=== PATIENT | female | born 1935 | race Caucasian/White ===

== ENCOUNTER 2016-03-06 08:53 | Inpatient (IN) | payer OTHER ==
[~2016-03-06] VITALS: Ht 162.6 cm; Wt 86.6 kg
[~2016-03-06 08:53] MED LIST: ADULT LOW DOSE81 M1 PO; ALLOPURINOL300 MG PO; GEMFIBROZIL600 MG PO; GLUCOPHAGE500 MG PO; MICARDIS HCT1 TABLET PO; SIMVASTATIN40 MG PO; VICODIN,LORT1 TABLET PO
[2016-03-06 09:55] LABS: EOSINOPHIL (%) 0.5 % (0-5); EOSINOPHIL COUNT 0.1 K/uL (0-0.3); HEMATOCRIT 30.4 % (36.0-46.0); IMMATURE GRANULOCYTE (%) 0.9 % (0.0-0.7); MCH 30.8 PG (29.0-34.0); MCHC 32.9 G/DL (30.0-36.0); MCV 93.5 FL (83-99); MEAN PLAT.VOLUME 10.1 uM^3 (9.5-12.4); MONOCYTE (%) 4.2 % (3-12); MONOCYTE COUNT 0.5 K/uL (0-0.8); NEUTROPHIL (%) 85.4 % (45-76); NEUTROPHIL COUNT 9.4 K/uL (1.8-6.4); PLATELET COUNT 365 K/uL (156-360); RBC DIS.WIDTH-CV 14.3 % (11.8-14.6); RBC DIS.WIDTH-SD 46.2 % (39-53); RED BLOOD COUNT 3.25 M/uL (3.80-5.20)
[2016-03-06 10:06] LABS: CHLORIDE 108 mEq/L (99-109); POTASSIUM 4.6 mEq/L (3.7-5.4); SODIUM 139 mEq/L (136-147)
[2016-03-06 10:08] LABS: GLUCOSE 109 mg/dL (70-99)
[2016-03-06 10:09] LABS: ANION GAP 12 MEQ/L (2-14)
[2016-03-06 10:10] LABS: TOTAL BILIRUBIN 0.3 mg/dL (0.0-1.0)
[2016-03-06 10:11] LABS: ALKALINE PHOSPHATASE 85 IU/L (3-129)
[2016-03-06 10:12] LABS: GFR ESTIMATE (CALCULATED) 6 mL/min/
[2016-03-06 10:17] LABS: TROP-I INTERPRETATION POSITIVE
[2016-03-06 10:23] LABS: UREA NITROGEN (BUN) 104 mg/dL (9-23)
[2016-03-06 10:24] LABS: TROPONIN-I 0.68 ng/mL (0.0-0.30)
[2016-03-06 10:52] LABS: ADD MIUA? YES; BILIRUBIN SMALL; BLOOD SMALL; COLOR YELLOW ((YELLOW)); GLUCOSE (STRIP) NEGATIVE; KETONES NEGATIVE; LEUKOCYTES NEGATIVE; NITRITE NEGATIVE; PROTEIN (STRIP) >=300; SPECIFIC GRAVITY 1.019 (1.000-1.030); UROBILINOGEN 0.2 MG/DL (0.2-1.0)
[2016-03-06 11:16] LABS: BACTERIA NONE SEEN; CASTS NONE SEEN /LPF; CRYSTALS NONE SEEN; EPITHELIAL CELLS RARE; MUCUS NONE SEEN; PATHOLOGICAL CAST NONE SEEN; RED BLOOD CELLS 0-5 /HPF (0-5); SMALL ROUND CELL NONE SEEN; UCUL ADDED? NO; WHITE BLOOD CELLS 0-5 /HPF (0-5); YEAST-LIKE CELL NONE SEEN
[2016-03-06 15:45] VITALS: BP 144/82
[2016-03-06 20:13] VITALS: BP 129/69
[2016-03-06 20:49] LABS: POINT-OF-CARE METER ID UU13113725
[2016-03-06 23:29] VITALS: BP 137/64
[2016-03-07 03:27] VITALS: BP 115/58
[2016-03-07 03:28] VITALS: BP 115/58
[2016-03-07 06:20] LABS: HEMATOCRIT 27.8 % (36.0-46.0); MCHC 32.7 G/DL (30.0-36.0); MCV 94.6 FL (83-99); MEAN PLAT.VOLUME 10.5 uM^3 (9.5-12.4); PLATELET COUNT 332 K/uL (156-360); RBC DIS.WIDTH-CV 14.6 % (11.8-14.6); RBC DIS.WIDTH-SD 49.9 % (39-53); RED BLOOD COUNT 2.94 M/uL (3.80-5.20); WHITE BLOOD COUNT 9.3 K/uL (4.1-10.2)
[2016-03-07 06:32] LABS: POINT-OF-CARE METER ID UU13113725
[2016-03-07 06:45] LABS: ANION GAP 11 MEQ/L (2-14); CHLORIDE 113 MEQ/L (99-109); GFR ESTIMATE (CALCULATED) 8 mL/min/; GLUCOSE 96 mg/dL (70-99); POTASSIUM 4.5 MEQ/L (3.7-5.4); SAMPLE HEMOLYSIS CHECK 0; SAMPLE ICTERIC CHECK 0; SAMPLE LIPEMIA CHECK 0; SODIUM 143 MEQ/L (136-147); UREA NITROGEN (BUN) 91 mg/dL (9-23)
[2016-03-07 08:27] VITALS: BP 110/60
[2016-03-07 11:19] LABS: POINT-OF-CARE METER ID UU13113725
[2016-03-07 15:42] LABS: POINT-OF-CARE METER ID UU13113725
[2016-03-07 16:09] LABS: POINT-OF-CARE METER ID UU13113725
[2016-03-07 19:32] VITALS: BP 127/70
[2016-03-07 20:43] LABS: POINT-OF-CARE METER ID UU13113725
[2016-03-08] VITALS (7 sets, daily range): BP systolic 110–156; BP diastolic 68–79
[2016-03-08 06:04] LABS: POINT-OF-CARE METER ID UU13113725
[2016-03-08 06:32] LABS: ABSOLUTE RETICULOCYTE CT. 0.03 M/uL (0.02-0.08); HEMATOCRIT 26.7 % (36.0-46.0); IMM.RETIC FRACTION 5.6 % (3-19); MCH 30.5 PG (29.0-34.0); MCHC 31.8 G/DL (30.0-36.0); MCV 95.7 FL (83-99); MEAN PLAT.VOLUME 10.5 uM^3 (9.5-12.4); PLATELET COUNT 258 K/uL (156-360); RBC DIS.WIDTH-CV 14.5 % (11.8-14.6); RBC DIS.WIDTH-SD 50.8 % (39-53); RED BLOOD COUNT 2.79 M/uL (3.80-5.20); RETICULOCYTE COUNT 1.2 % (0.5-1.8); WHITE BLOOD COUNT 8.9 K/uL (4.1-10.2)
[2016-03-08 07:12] LABS: ANION GAP 9 MEQ/L (2-14); CHLORIDE 117 MEQ/L (99-109); GFR ESTIMATE (CALCULATED) 9 mL/min/; GLUCOSE 123 mg/dL (70-99); IRON 35 MCG/DL (35-150); POTASSIUM 4.5 MEQ/L (3.7-5.4); SAMPLE HEMOLYSIS CHECK 0; SAMPLE ICTERIC CHECK 0; SAMPLE LIPEMIA CHECK 0; SODIUM 147 MEQ/L (136-147); UREA NITROGEN (BUN) 86 mg/dL (9-23)
[2016-03-08 09:53] LABS: FERRITIN 224 NG/ML (10-291)
[2016-03-08 11:26] LABS: POINT-OF-CARE METER ID UU13113725
[2016-03-08 12:22] LABS: ALKALINE PHOSPHATASE 67 IU/L (3-129); DIRECT BILIRUBIN 0.1 mg/dL (0.0-0.3); TOTAL BILIRUBIN 0.2 MG/DL (0.0-1.0)
[2016-03-08 13:00] LABS: TROP-I INTERPRETATION INDETERMINATE; TROPONIN-I 0.59 ng/mL (0.0-0.30)
[2016-03-08 16:31] LABS: POINT-OF-CARE METER ID UU13113725
[2016-03-08 21:19] LABS: POINT-OF-CARE METER ID UU13113725
[2016-03-09 01:45] LABS: UR CREATININE CONCENTRATION 60.9 MG/DL
[2016-03-09 03:25] VITALS: BP 159/72
[2016-03-09 06:37] LABS: HEMATOCRIT 25.3 % (36.0-46.0); MCH 31.8 PG (29.0-34.0); MCHC 33.6 G/DL (30.0-36.0); MCV 94.8 FL (83-99); MEAN PLAT.VOLUME 10.8 uM^3 (9.5-12.4); PLATELET COUNT 262 K/uL (156-360); RBC DIS.WIDTH-CV 14.7 % (11.8-14.6); RED BLOOD COUNT 2.67 M/uL (3.80-5.20); WHITE BLOOD COUNT 9.3 K/uL (4.1-10.2)
[2016-03-09 06:59] LABS: Estimated Average Glucose 126 mg/dL (70-123)
[2016-03-09 07:06] LABS: ANION GAP 9 MEQ/L (2-14); CHLORIDE 115 MEQ/L (99-109); GFR ESTIMATE (CALCULATED) 11 mL/min/; GLUCOSE 120 mg/dL (70-99); POTASSIUM 4.2 MEQ/L (3.7-5.4); SAMPLE HEMOLYSIS CHECK 0; SAMPLE ICTERIC CHECK 0; SAMPLE LIPEMIA CHECK 0; SODIUM 144 MEQ/L (136-147); UREA NITROGEN (BUN) 78 mg/dL (9-23); URIC ACID 7.5 mg/dL (3.1-9.2)
[2016-03-09 09:23] VITALS: BP 151/71
[2016-03-09 14:04] LABS: URINE TOTAL PROTEIN 159 MG/DL (0-10)
[2016-03-09 16:01] VITALS: BP 185/86
[2016-03-09 19:20] VITALS: BP 147/81
[2016-03-09 22:46] VITALS: BP 157/81
[2016-03-10 03:06] VITALS: BP 149/76
[2016-03-10 05:54] LABS: HEMATOCRIT 26.5 % (36.0-46.0); MCH 30.9 PG (29.0-34.0); MCHC 32.8 G/DL (30.0-36.0); MEAN PLAT.VOLUME 11.2 uM^3 (9.5-12.4); PLATELET COUNT 253 K/uL (156-360); RBC DIS.WIDTH-CV 14.3 % (11.8-14.6); RBC DIS.WIDTH-SD 49.3 % (39-53); RED BLOOD COUNT 2.82 M/uL (3.80-5.20); WHITE BLOOD COUNT 7.8 K/uL (4.1-10.2)
[2016-03-10 06:26] LABS: ALKALINE PHOSPHATASE 58 IU/L (3-129); ANION GAP 9 MEQ/L (2-14); CHLORIDE 114 MEQ/L (99-109); CHLORIDE 115 MEQ/L (99-109); GFR ESTIMATE (CALCULATED) 15 mL/min/; GLUCOSE 101 mg/dL (70-99); GLUCOSE 102 mg/dL (70-99); POTASSIUM 3.7 MEQ/L (3.7-5.4); SAMPLE HEMOLYSIS CHECK 0; SAMPLE ICTERIC CHECK 0; SAMPLE LIPEMIA CHECK 0; SODIUM 143 MEQ/L (136-147); SODIUM 144 MEQ/L (136-147); UREA NITROGEN (BUN) 67 mg/dL (9-23); UREA NITROGEN (BUN) 68 mg/dL (9-23)
[2016-03-10 06:28] LABS: GFR ESTIMATE (CALCULATED) 16 mL/min/; TOTAL BILIRUBIN 0.3 MG/DL (0.0-1.0)
[2016-03-10 08:00] VITALS: BP 160/84
[2016-03-10 08:36] LABS: INTACT PARATHYROID HORMONE 266 pg/mL (10-69)
[2016-03-10 11:26] LABS: POINT-OF-CARE METER ID UU13113725
[2016-03-10 11:35] VITALS: BP 140/89
[2016-03-10 16:30] VITALS: BP 152/85
[2016-03-10 21:13] LABS: POINT-OF-CARE METER ID UU13113725
[2016-03-10 22:57] VITALS: BP 170/88
[2016-03-11 03:13] VITALS: BP 165/86
[2016-03-11 04:26] LABS: MCH 31.2 PG (29.0-34.0); MCHC 32.6 G/DL (30.0-36.0); MCV 95.7 FL (83-99); MEAN PLAT.VOLUME 10.6 uM^3 (9.5-12.4); PLATELET COUNT 238 K/uL (156-360); RBC DIS.WIDTH-CV 14.2 % (11.8-14.6); RBC DIS.WIDTH-SD 46.1 % (39-53); RED BLOOD COUNT 2.82 M/uL (3.80-5.20); WHITE BLOOD COUNT 6.8 K/uL (4.1-10.2)
[2016-03-11 04:33] LABS: CHLORIDE 117 mEq/L (99-109); SODIUM 144 mEq/L (136-147)
[2016-03-11 04:35] LABS: GLUCOSE 115 mg/dL (70-99)
[2016-03-11 04:36] LABS: ANION GAP 6 MEQ/L (2-14)
[2016-03-11 04:38] LABS: GFR ESTIMATE (CALCULATED) 17 mL/min/
[2016-03-11 04:39] LABS: UREA NITROGEN (BUN) 76 mg/dL (9-23)
[2016-03-11 05:39] LABS: POINT-OF-CARE METER ID UU13113725
[2016-03-11 08:14] VITALS: BP 163/82
[2016-03-11 11:32] LABS: POINT-OF-CARE METER ID UU13113725
[2016-03-11 11:49] VITALS: BP 153/78
[2016-03-11] MEDS ORDERED: BUPROPION XL150 MG PO (11:50)
[2016-03-11] MEDS ORDERED: ESCITALOPRAM OX10 MG PO (11:50)
[2016-03-11] MEDS ORDERED: AMLODIPINE BES2.5 MG PO (11:50)
[2016-03-11] MEDS ORDERED: CALCITRIOL0.25 MCG PO (11:51)
[2016-03-11] MEDS ORDERED: PANTOPRAZOLE SO40 MG PO (11:51)
[2016-03-13 11:07] LABS: IFE GEL NO. 14-1
== END 2016-03-11 14:40 | DRG 683 ==
LOC: EME → EDBD 08:53 → 5EAST 12:40 → EDOF 12:40 → 5EAST 15:04
PROVIDERS: Emergency Medicine; Internal Medicine; Internal Medicine Nephrology
DX: N17.9 Acute kidney failure, unspecified (principal); E87.2 Acidosis; F32.9 Major depressive disorder, single episode, unspecified; I12.9 Hypertensive chronic kidney disease with stage 1 through stage 4 chronic kidney disease, or unspecified chronic kidney disease; M10.9 Gout, unspecified; N18.4 Chronic kidney disease, stage 4 (severe); D63.1 Anemia in chronic kidney disease; E87.8 Other disorders of electrolyte and fluid balance, not elsewhere classified; E11.21 Type 2 diabetes mellitus with diabetic nephropathy; K21.9 Gastro-esophageal reflux disease without esophagitis; E78.5 Hyperlipidemia, unspecified; E55.9 Vitamin D deficiency, unspecified; E66.9 Obesity, unspecified; Z68.33 Body mass index [BMI] 33.0-33.9, adult; E86.0 Dehydration; R29.6 Repeated falls; I27.2 Other secondary pulmonary hypertension; I35.0 Nonrheumatic aortic (valve) stenosis
CPT/HCPCS: 71010; 73502; 73552; 76770; 80048; 80053; 80069; 80076; 81003; 82272; 82306; 82570; 82607; 82728; 82746; 82948; 83036; 83540; 83605; 83970; 84156; 84443; 84466; 84484; 84550; 85025; 85027; 85045; 86334; 86335; 93005; 93306; 94799; 97530 GP; 99281; 99285; J0881; J1644; J1815; J7030; J7040

== ENCOUNTER 2017-01-08 20:07 | Inpatient (IN) | payer OTHER ==
[~2017-01-08] VITALS: Ht 152.4 cm; Wt 80.8 kg
[~2017-01-08 20:07] MED LIST changes: +AMLODIPINE BES2.5 MG PO; +BUPROPION XL150 MG PO; +CALCITRIOL0.25 MCG PO; +ESCITALOPRAM OX10 MG PO; +PANTOPRAZOLE SO40 MG PO
[2017-01-08 20:56] LABS: CHLORIDE 112 mEq/L (99-109); POTASSIUM 4.5 mEq/L (3.7-5.4); SODIUM 145 mEq/L (136-147)
[2017-01-08 20:58] LABS: GLUCOSE 122 mg/dL (70-99); INTER. NORMALIZED RATIO 1.1; PROTHROMBIN TIME 12.4 SEC (10.2-12.9)
[2017-01-08 20:59] LABS: ANION GAP 10 MEQ/L (2-14)
[2017-01-08 21:01] LABS: GFR ESTIMATE (CALCULATED) 15 mL/min/; PTT 30.9 SEC (25-37)
[2017-01-08 21:02] LABS: UREA NITROGEN (BUN) 47 mg/dL (9-23)
[2017-01-08 21:07] LABS: MCH 30.7 PG (29.0-34.0); MCHC 31.9 G/DL (30.0-36.0); MCV 96.4 FL (83-99); RBC DIS.WIDTH-CV 14.2 % (11.8-14.6); RBC DIS.WIDTH-SD 49.3 % (39-53); RED BLOOD COUNT 3.32 M/uL (3.80-5.20); WHITE BLOOD COUNT 5.3 K/uL (4.1-10.2)
[2017-01-08] MEDS ORDERED: PRILOSEC20 MG PO (21:12)
[2017-01-08 21:13] LABS: TROP-I INTERPRETATION INDETERMINATE; TROPONIN-I 0.32 ng/mL (0.0-0.30)
[2017-01-08] MEDS ORDERED: LEXAPRO20 MG PO (21:13)
[2017-01-08] MEDS ORDERED: AMLODIPINE BES2.5 MG PO (21:14)
[2017-01-08 21:36] LABS: IMM.PLATELET FRACTION 15.8 (1-7); PLAT.SUFFICIENCY VERY DECREASED
[2017-01-08 21:37] LABS: PLATELET COUNT 11 K/uL (156-360)
[2017-01-08 22:29] VITALS: BP 164/97
[2017-01-09 02:03] LABS: LACTATE DEHYDROGENASE 223 IU/L (20-246)
[2017-01-09 02:04] LABS: ADD MIUA? YES; BILIRUBIN NEGATIVE; BLOOD SMALL; COLOR YELLOW ((YELLOW)); GLUCOSE (STRIP) 150; KETONES NEGATIVE; LEUKOCYTES TRACE; NITRITE NEGATIVE; PROTEIN (STRIP) >=500; SPECIFIC GRAVITY 1.013 (1.000-1.030); UROBILINOGEN 0.2 MG/DL (0.2-1.0)
[2017-01-09 02:21] VITALS: BP 169/99
[2017-01-09 02:28] VITALS: BP 169/99
[2017-01-09 02:42] LABS: BACTERIA RARE /HPF; EPITHELIAL CELLS RARE /HPF; MUCUS NONE SEEN /LPF; RED BLOOD CELLS 0-5 /HPF (0-5)
[2017-01-09 03:36] LABS: TROP-I INTERPRETATION NEGATIVE; TROPONIN-I 0.27 ng/mL (0.0-0.30)
[2017-01-09 03:59] VITALS: BP 158/110
[2017-01-09 07:19] LABS: POINT-OF-CARE METER ID UU14100415
[2017-01-09] MEDS ORDERED: ERGOCALCIF50000 UNIT PO (11:02)
[2017-01-09 12:37] LABS: POINT-OF-CARE METER ID UU14100415
[2017-01-09 19:51] VITALS: BP 138/67
[2017-01-09 21:07] LABS: POINT-OF-CARE METER ID UU14314088
[2017-01-09 22:52] VITALS: BP 147/81
[2017-01-09 23:24] VITALS: BP 139/90
[2017-01-10] VITALS (11 sets, daily range): BP systolic 100–160; BP diastolic 57–99
[2017-01-10 08:23] LABS: POINT-OF-CARE METER ID UU14174216
[2017-01-10 08:28] LABS: HEMATOCRIT 26.4 % (36.0-46.0); MCH 30.4 PG (29.0-34.0); MCHC 31.4 G/DL (30.0-36.0); MCV 96.7 FL (83-99); MEAN PLAT.VOLUME 12.1 uM^3 (9.5-12.4); RBC DIS.WIDTH-CV 14.4 % (11.8-14.6); RBC DIS.WIDTH-SD 50.2 % (39-53); RED BLOOD COUNT 2.73 M/uL (3.80-5.20); WHITE BLOOD COUNT 4.6 K/uL (4.1-10.2)
[2017-01-10 08:49] LABS: ANION GAP 6 MEQ/L (2-14); CHLORIDE 108 MEQ/L (99-109); GFR ESTIMATE (CALCULATED) 15 mL/min/; POTASSIUM 4.3 MEQ/L (3.7-5.4); SAMPLE HEMOLYSIS CHECK 0; SAMPLE ICTERIC CHECK 0; SAMPLE LIPEMIA CHECK 0; SODIUM 139 MEQ/L (136-147); UREA NITROGEN (BUN) 53 mg/dL (9-23)
[2017-01-10 08:51] LABS: GLUCOSE 184 mg/dL (70-99)
[2017-01-10 09:06] LABS: PLATELET COUNT 86 K/uL (156-360)
[2017-01-10 11:52] LABS: POINT-OF-CARE METER ID UU14174216
[2017-01-10 15:21] LABS: POINT-OF-CARE METER ID UU13113698
[2017-01-10 21:20] LABS: POINT-OF-CARE METER ID UU14314088
[2017-01-11] VITALS (7 sets, daily range): BP systolic 128–154; BP diastolic 71–96
[2017-01-11 06:38] LABS: POINT-OF-CARE METER ID UU14117124
[2017-01-11 07:21] LABS: HEMATOCRIT 27.3 % (36.0-46.0); MCH 30.5 PG (29.0-34.0); MCHC 31.1 G/DL (30.0-36.0); MCV 97.8 FL (83-99); MEAN PLAT.VOLUME 11.5 uM^3 (9.5-12.4); RBC DIS.WIDTH-CV 14.6 % (11.8-14.6); RBC DIS.WIDTH-SD 52.3 % (39-53); RED BLOOD COUNT 2.79 M/uL (3.80-5.20); WHITE BLOOD COUNT 5.6 K/uL (4.1-10.2)
[2017-01-11 07:26] LABS: PLATELET COUNT 126 K/uL (156-360)
[2017-01-11 11:51] LABS: POINT-OF-CARE METER ID UU14149397
[2017-01-11 16:21] LABS: POINT-OF-CARE METER ID UU14188577
[2017-01-11 21:57] LABS: POINT-OF-CARE METER ID UU14188577
[2017-01-12 03:40] VITALS: BP 159/93
[2017-01-12 06:41] LABS: POINT-OF-CARE METER ID UU14117124
[2017-01-12 07:00] LABS: MCHC 30.4 G/DL (30.0-36.0); MCV 98.9 FL (83-99); MEAN PLAT.VOLUME 11.3 uM^3 (9.5-12.4); PLATELET COUNT 141 K/uL (156-360); RBC DIS.WIDTH-CV 14.4 % (11.8-14.6); RBC DIS.WIDTH-SD 51.5 % (39-53); RED BLOOD COUNT 2.73 M/uL (3.80-5.20); WHITE BLOOD COUNT 5.2 K/uL (4.1-10.2)
[2017-01-12 07:24] LABS: ALKALINE PHOSPHATASE 70 IU/L (3-129); ANION GAP 7 MEQ/L (2-14); CHLORIDE 109 MEQ/L (99-109); GFR ESTIMATE (CALCULATED) 13 mL/min/; GLUCOSE 122 mg/dL (70-99); POTASSIUM 4.5 MEQ/L (3.7-5.4); SAMPLE HEMOLYSIS CHECK 0; SAMPLE ICTERIC CHECK 0; SAMPLE LIPEMIA CHECK 0; SODIUM 141 MEQ/L (136-147); UREA NITROGEN (BUN) 74 mg/dL (9-23)
[2017-01-12 07:33] LABS: TOTAL BILIRUBIN 0.2 MG/DL (0.0-1.0)
[2017-01-12 07:43] VITALS: BP 162/87
[2017-01-12] MEDS ORDERED: PREDNISONE20 MG PO (08:47)
[2017-01-12 11:00] VITALS: BP 139/75
[2017-01-12 11:50] LABS: POINT-OF-CARE METER ID UU14188577
[2017-01-12 16:25] VITALS: BP 165/80
[2017-01-12 16:40] LABS: POINT-OF-CARE METER ID UU14188577
[2017-01-12 19:20] VITALS: BP 155/88
[2017-01-12 21:58] LABS: POINT-OF-CARE METER ID UU14117124
[2017-01-12 23:17] VITALS: BP 151/79
[2017-01-13 04:19] VITALS: BP 132/78
[2017-01-13 06:38] LABS: POINT-OF-CARE METER ID UU14188577
[2017-01-13 07:02] LABS: HEMATOCRIT 29.2 % (36.0-46.0); MCH 31.1 PG (29.0-34.0); MCHC 31.5 G/DL (30.0-36.0); MCV 98.6 FL (83-99); MEAN PLAT.VOLUME 11.7 uM^3 (9.5-12.4); PLATELET COUNT 184 K/uL (156-360); RBC DIS.WIDTH-CV 14.3 % (11.8-14.6); RBC DIS.WIDTH-SD 51.3 % (39-53); RED BLOOD COUNT 2.96 M/uL (3.80-5.20); WHITE BLOOD COUNT 5.5 K/uL (4.1-10.2)
[2017-01-13 07:41] VITALS: BP 133/81
[2017-01-13 10:58] LABS: POINT-OF-CARE METER ID UU14188577
[2017-01-13 11:02] VITALS: BP 136/75
== END 2017-01-13 14:14 | disposition home health service (06) | DRG 813 ==
LOC: EME 20:07 → EDOF 01-09 01:00 → 3EAST 01-09 01:00 → ENRESERV 01-09 01:02 → EDOF 01-09 02:23 → ENRESERV 01-09 04:44 → EDOF 01-09 07:24 → ENRESERV 01-09 10:31 → 4EAST 01-09 15:47 → ENRESERV 01-11 02:08 → 3EAST 01-11 04:06 → ENPENDDIS 01-13 → 3EAST 01-13 14:14
PROVIDERS: Hospitalist; Internal Medicine; Physician Assistant Medical
PROC: 30233R1 Transfusion of Nonautologous Platelets into Peripheral Vein, Percutaneous Approach (ICD-10-PCS; principal; 2017-01-09)
DX: D69.3 Immune thrombocytopenic purpura (principal); F28 Other psychotic disorder not due to a substance or known physiological condition; T38.0X5A Adverse effect of glucocorticoids and synthetic analogues, initial encounter; F05 Delirium due to known physiological condition; D61.818 Other pancytopenia; N17.9 Acute kidney failure, unspecified; I13.0 Hypertensive heart and chronic kidney disease with heart failure and stage 1 through stage 4 chronic kidney disease, or unspecified chronic kidney disease; I50.23 Acute on chronic systolic (congestive) heart failure; E11.21 Type 2 diabetes mellitus with diabetic nephropathy; N18.4 Chronic kidney disease, stage 4 (severe); E11.22 Type 2 diabetes mellitus with diabetic chronic kidney disease; D63.1 Anemia in chronic kidney disease; E78.5 Hyperlipidemia, unspecified; F32.9 Major depressive disorder, single episode, unspecified; F41.9 Anxiety disorder, unspecified; I27.20 Pulmonary hypertension, unspecified; I42.0 Dilated cardiomyopathy; M10.9 Gout, unspecified; K21.9 Gastro-esophageal reflux disease without esophagitis; I35.2 Nonrheumatic aortic (valve) stenosis with insufficiency; E66.9 Obesity, unspecified; Z68.34 Body mass index [BMI] 34.0-34.9, adult
CPT/HCPCS: 36415; 70450; 71020; 80048; 80053; 81003; 82043; 82570; 82948; 83036; 83615; 83880; 84443; 84484; 85025; 85027; 85049; 85610; 85730; 86850; 86900; 86901; 93005; 93306; 94799; 99281; 99285; J1200; J1568; J1815; J1940; J2060; J2930; J7512; P9035; P9037

== ENCOUNTER 2017-02-18 07:35 | Day surgery (SDC) | payer OTHER ==
[~2017-02-18] VITALS: Ht 157.5 cm; Wt 75.3 kg
[~2017-02-18 07:35] MED LIST changes: +ERGOCALCIF50000 UNIT PO; +LEXAPRO20 MG PO; +PREDNISONE20 MG PO; +PRILOSEC20 MG PO
[2017-02-18 09:56] LABS: HEMATOCRIT 33.1 % (36.0-46.0); HEMOGLOBIN 10.7 G/DL (11.9-15.5); MCH 31.1 PG (29.0-34.0); MCHC 32.3 G/DL (30.0-36.0); MCV 96.2 FL (83-99); PLATELET COUNT 207 K/uL (156-360); RBC DIS.WIDTH-CV 13.8 % (11.8-14.6); RBC DIS.WIDTH-SD 49.2 % (39-53); RED BLOOD COUNT 3.44 M/uL (3.80-5.20); WHITE BLOOD COUNT 6.2 K/uL (4.1-10.2)
[2017-02-18] MEDS ORDERED: ACETYLCYST200 MG/1 M PO (09:56)
[2017-02-18] MEDS ORDERED: ALPRAZOLAM0.5 MG PO (09:57)
== END 2017-02-18 17:35 | disposition home or self-care (01) ==
LOC: CATH 07:35
PROVIDERS: Internal Medicine Cardiovascular Disease
DX: I25.10 Atherosclerotic heart disease of native coronary artery without angina pectoris (principal); I42.0 Dilated cardiomyopathy; I27.20 Pulmonary hypertension, unspecified; I50.42 Chronic combined systolic (congestive) and diastolic (congestive) heart failure; I35.0 Nonrheumatic aortic (valve) stenosis; K21.9 Gastro-esophageal reflux disease without esophagitis; E11.22 Type 2 diabetes mellitus with diabetic chronic kidney disease; N18.9 Chronic kidney disease, unspecified; D64.9 Anemia, unspecified
CPT/HCPCS: 85027; C1760; C1769; C1894; J1644; J2250; J3010; J7040

== ENCOUNTER 2017-04-08 11:49 | Inpatient (IN) | payer OTHER ==
[~2017-04-08] VITALS: Ht 152.4 cm; Wt 70.9 kg
[~2017-04-08 11:49] MED LIST changes: +ACETYLCYST200 MG/1 M PO; +ALPRAZOLAM0.5 MG PO
[2017-04-08 12:59] LABS: MCHC 32.1 G/DL (30.0-36.0); MCV 96.6 FL (83-99); RBC DIS.WIDTH-CV 15.3 % (11.8-14.6); RBC DIS.WIDTH-SD 53.2 % (39-53); WHITE BLOOD COUNT 4.3 K/uL (4.1-10.2)
[2017-04-08 13:01] LABS: CHLORIDE 110 mEq/L (99-109); POTASSIUM 3.8 mEq/L (3.7-5.4); SODIUM 141 mEq/L (136-147)
[2017-04-08 13:03] LABS: GLUCOSE 91 mg/dL (70-99)
[2017-04-08 13:07] LABS: CREATININE 2.6 mg/dL (0.6-1.3); GFR ESTIMATE (CALCULATED) 19 mL/min/
[2017-04-08 13:08] LABS: UREA NITROGEN (BUN) 39 mg/dL (9-23)
[2017-04-08 13:32] LABS: BASOPHIL (%) 0.2 % (0-1); EOSINOPHIL (%) 1.6 % (0-5); EOSINOPHIL COUNT 0.1 K/uL (0-0.3); IMM.PLATELET FRACTION 17.8 (1-7); IMMATURE GRANULOCYTE (%) 0.2 % (0.0-0.7); LYMPHOCYTE (%) 34.7 % (15-42); LYMPHOCYTE COUNT 1.5 K/uL (1.0-2.8); MONOCYTE (%) 7.4 % (3-12); MONOCYTE COUNT 0.3 K/uL (0-0.8); NEUTROPHIL (%) 55.9 % (45-76); NEUTROPHIL COUNT 2.4 K/uL (1.8-6.4); PLAT.SUFFICIENCY DECREASED
[2017-04-08 13:34] LABS: PLATELET COUNT 3 K/uL (156-360)
[2017-04-08 15:14] LABS: TROP-I INTERPRETATION NEGATIVE; TROPONIN-I 0.05 ng/mL (0.0-0.30)
[2017-04-08] MEDS ORDERED: WELLBUTRIN XL150 MG PO (16:23)
[2017-04-08] MEDS ORDERED: CARVEDILOL3.125 MG PO (16:24)
[2017-04-08] MEDS ORDERED: CALCITRIOL0.25 MCG PO (16:25)
[2017-04-08 16:51] LABS: APPEARANCE CLOUDY ((CLEAR)); BILIRUBIN NEGATIVE; BLOOD SMALL; COLOR YELLOW ((YELLOW)); GLUCOSE (STRIP) 50; KETONES NEGATIVE; LEUKOCYTES LARGE; NITRITE NEGATIVE; PROTEIN (STRIP) >=500; SPECIFIC GRAVITY 1.009 (1.000-1.030); UROBILINOGEN 0.2 MG/DL (0.2-1.0)
[2017-04-08 17:20] LABS: RED BLOOD CELLS RARE /HPF (0-5); WHITE BLOOD CELLS 30-40 /HPF (0-5)
[2017-04-08 17:21] LABS: BACTERIA RARE /HPF; EPITHELIAL CELLS RARE /HPF; MUCUS NONE SEEN /LPF
[2017-04-08 17:49] VITALS: BP 160/86
[2017-04-08 20:06] VITALS: BP 153/82
[2017-04-08 20:50] LABS: TROP-I INTERPRETATION NEGATIVE; TROPONIN-I 0.29 ng/mL (0.0-0.30)
[2017-04-08 23:20] VITALS: BP 151/99
[2017-04-08 23:47] VITALS: BP 161/99
[2017-04-08 23:57] VITALS: BP 171/93
[2017-04-09] VITALS (12 sets, daily range): BP systolic 125–176; BP diastolic 69–95
[2017-04-09 03:21] LABS: TROP-I INTERPRETATION INDETERMINATE; TROPONIN-I 0.38 ng/mL (0.0-0.30)
[2017-04-09 04:21] LABS: HEMATOCRIT 25.4 % (36.0-46.0); HEMOGLOBIN 8.1 G/DL (11.9-15.5); MCH 30.7 PG (29.0-34.0); MCHC 31.9 G/DL (30.0-36.0); MCV 96.2 FL (83-99); RBC DIS.WIDTH-CV 15.1 % (11.8-14.6); RBC DIS.WIDTH-SD 53.2 % (39-53); RED BLOOD COUNT 2.64 M/uL (3.80-5.20); WHITE BLOOD COUNT 3.5 K/uL (4.1-10.2)
[2017-04-09 04:47] LABS: CHLORIDE 110 mEq/L (99-109); POTASSIUM 4.3 mEq/L (3.7-5.4); SODIUM 140 mEq/L (136-147)
[2017-04-09 04:53] LABS: CREATININE 2.9 mg/dL (0.6-1.3); GFR ESTIMATE (CALCULATED) 17 mL/min/
[2017-04-09 04:54] LABS: GLUCOSE 205 mg/dL (70-99); UREA NITROGEN (BUN) 43 mg/dL (9-23)
[2017-04-09 05:39] LABS: BASOPHIL (%) 0.3 % (0-1); EOSINOPHIL (%) 0 % (0-5); IMMATURE GRANULOCYTE (%) 0.6 % (0.0-0.7); LYMPHOCYTE (%) 16.9 % (15-42); LYMPHOCYTE COUNT 0.6 K/uL (1.0-2.8); MONOCYTE (%) 2.4 % (3-12); MONOCYTE COUNT 0.1 K/uL (0-0.8); NEUTROPHIL (%) 79.8 % (45-76); NEUTROPHIL COUNT 2.7 K/uL (1.8-6.4)
[2017-04-09 06:44] LABS: PLATELET COUNT 23 K/uL (156-360)
[2017-04-10] VITALS (8 sets, daily range): BP systolic 138–174; BP diastolic 64–104
[2017-04-10 06:13] LABS: HEMATOCRIT 29.3 % (36.0-46.0); MCH 30.8 PG (29.0-34.0); MCHC 30.7 G/DL (30.0-36.0); RBC DIS.WIDTH-CV 15.5 % (11.8-14.6); RBC DIS.WIDTH-SD 56.9 % (39-53); RED BLOOD COUNT 2.92 M/uL (3.80-5.20); WHITE BLOOD COUNT 4.8 K/uL (4.1-10.2)
[2017-04-10 06:17] LABS: MCV 100.3 FL (83-99)
[2017-04-10 06:22] LABS: TROP-I INTERPRETATION POSITIVE; TROPONIN-I 0.63 ng/mL (0.0-0.30)
[2017-04-10 06:37] LABS: IMM.PLATELET FRACTION 8.4 (1-7); PLATELET COUNT 24 K/uL (156-360)
[2017-04-10 22:17] LABS: ALBUMIN 3.1 G/DL (3.2-4.8); CHLORIDE 109 MEQ/L (99-109); MAGNESIUM 1.5 mg/dl (1.3-2.7); POTASSIUM 4.5 MEQ/L (3.7-5.4); SODIUM 140 MEQ/L (136-147); TOTAL BILIRUBIN 0.5 MG/DL (0.0-1.0)
[2017-04-10 22:18] LABS: INTER. NORMALIZED RATIO 1.1
[2017-04-10 22:21] LABS: PTT 27.4 SEC (25-37)
[2017-04-10 22:23] LABS: ALKALINE PHOSPHATASE 56 IU/L (3-129); ALT (GPT) 10 IU/L (3-49); AST (GOT) 13 IU/L (2-34); CREATININE 3.1 MG/DL (0.6-1.3); GFR ESTIMATE (CALCULATED) 15 mL/min/; GLUCOSE 168 mg/dL (70-99); PHOSPHORUS 4.6 mg/dL (2.5-4.9); TOTAL PROTEIN 5.9 G/DL (6.4-8.3); UREA NITROGEN (BUN) 51 mg/dL (9-23)
[2017-04-10 22:27] LABS: TROP-I INTERPRETATION POSITIVE; TROPONIN-I 0.72 ng/mL (0.0-0.30)
[2017-04-11 03:45] VITALS: BP 146/90
[2017-04-11 06:02] LABS: HEMATOCRIT 26.9 % (36.0-46.0); HEMOGLOBIN 8.1 G/DL (11.9-15.5); MCH 30.6 PG (29.0-34.0); MCHC 30.1 G/DL (30.0-36.0); MCV 101.5 FL (83-99); RBC DIS.WIDTH-CV 15.6 % (11.8-14.6); RBC DIS.WIDTH-SD 58.2 % (39-53); RED BLOOD COUNT 2.65 M/uL (3.80-5.20); WHITE BLOOD COUNT 5.7 K/uL (4.1-10.2)
[2017-04-11 06:22] LABS: TROP-I INTERPRETATION POSITIVE
[2017-04-11 06:28] LABS: CHLORIDE 106 MEQ/L (99-109); CREATININE 3.3 MG/DL (0.6-1.3); GFR ESTIMATE (CALCULATED) 14 mL/min/; GLUCOSE 143 mg/dL (70-99); POTASSIUM 4.6 MEQ/L (3.7-5.4); SODIUM 141 MEQ/L (136-147); UREA NITROGEN (BUN) 52 mg/dL (9-23)
[2017-04-11 07:12] VITALS: BP 132/79
[2017-04-11 08:00] LABS: IMM.PLATELET FRACTION 6.3 (1-7); PLATELET COUNT 50 K/uL (156-360)
[2017-04-11 11:23] VITALS: BP 128/69
[2017-04-11 16:31] VITALS: BP 145/91
[2017-04-11 19:31] VITALS: BP 142/83
[2017-04-12 00:02] VITALS: BP 146/90
[2017-04-12 03:38] VITALS: BP 134/73
[2017-04-12 05:34] LABS: HEMATOCRIT 25.5 % (36.0-46.0); HEMOGLOBIN 7.6 G/DL (11.9-15.5); MCH 29.9 PG (29.0-34.0); MCHC 29.8 G/DL (30.0-36.0); MCV 100.4 FL (83-99); PLATELET COUNT 64 K/uL (156-360); RBC DIS.WIDTH-CV 15.5 % (11.8-14.6); RBC DIS.WIDTH-SD 56.5 % (39-53); RED BLOOD COUNT 2.54 M/uL (3.80-5.20); WHITE BLOOD COUNT 4.9 K/uL (4.1-10.2)
[2017-04-12 06:27] LABS: CHLORIDE 109 MEQ/L (99-109); CREATININE 3.5 MG/DL (0.6-1.3); GFR ESTIMATE (CALCULATED) 13 mL/min/; IRON 58 MCG/DL (35-150); PHOSPHORUS 4.6 mg/dL (2.5-4.9); POTASSIUM 4.5 MEQ/L (3.7-5.4); SODIUM 141 MEQ/L (136-147); TRANSFERRIN (TIBC) 200.6 mg/dL (215-380); TRANSFERRIN SATUR. 29 % (20-55); UREA NITROGEN (BUN) 60 mg/dL (9-23); URIC ACID 11.7 mg/dL (3.1-9.2)
[2017-04-12 06:28] LABS: GLUCOSE 107 mg/dL (70-99)
[2017-04-12 07:39] LABS: INTACT PARATHYROID HORMONE 338 pg/mL (10-69)
[2017-04-12 08:17] VITALS: BP 152/80
[2017-04-12 15:50] VITALS: BP 135/81
[2017-04-12 19:33] VITALS: BP 135/78
[2017-04-13] VITALS (7 sets, daily range): BP systolic 127–158; BP diastolic 69–92
[2017-04-13 06:05] LABS: HEMATOCRIT 27.2 % (36.0-46.0); HEMOGLOBIN 8.4 G/DL (11.9-15.5); MCH 30.9 PG (29.0-34.0); MCHC 30.9 G/DL (30.0-36.0); PLATELET COUNT 57 K/uL (156-360); RBC DIS.WIDTH-CV 15.4 % (11.8-14.6); RBC DIS.WIDTH-SD 55.5 % (39-53); RED BLOOD COUNT 2.72 M/uL (3.80-5.20); WHITE BLOOD COUNT 4.2 K/uL (4.1-10.2)
[2017-04-13 06:28] LABS: ALBUMIN 3.1 G/DL (3.2-4.8); CHLORIDE 103 MEQ/L (99-109); CREATININE 3.5 MG/DL (0.6-1.3); GFR ESTIMATE (CALCULATED) 13 mL/min/; GLUCOSE 101 mg/dL (70-99); PHOSPHORUS 4.3 mg/dL (2.5-4.9); POTASSIUM 4.4 MEQ/L (3.7-5.4); SODIUM 141 MEQ/L (136-147); UREA NITROGEN (BUN) 65 mg/dL (9-23)
[2017-04-14 03:54] VITALS: BP 140/91
[2017-04-14 06:35] LABS: HEMATOCRIT 26.1 % (36.0-46.0); HEMOGLOBIN 8.1 G/DL (11.9-15.5); MCH 30.5 PG (29.0-34.0); MCV 98.1 FL (83-99); PLATELET COUNT 55 K/uL (156-360); RBC DIS.WIDTH-CV 15.4 % (11.8-14.6); RBC DIS.WIDTH-SD 55.2 % (39-53); RED BLOOD COUNT 2.66 M/uL (3.80-5.20)
[2017-04-14 06:57] LABS: CHLORIDE 107 MEQ/L (99-109); CREATININE 3.6 MG/DL (0.6-1.3); GFR ESTIMATE (CALCULATED) 13 mL/min/; GLUCOSE 122 mg/dL (70-99); SODIUM 143 MEQ/L (136-147); UREA NITROGEN (BUN) 70 mg/dL (9-23)
[2017-04-14 08:04] VITALS: BP 142/87
[2017-04-14 12:03] VITALS: BP 141/84
[2017-04-14 17:31] VITALS: BP 149/83
[2017-04-14 19:29] VITALS: BP 152/89
[2017-04-14 23:56] VITALS: BP 155/84
[2017-04-15] VITALS (14 sets, daily range): BP systolic 135–183; BP diastolic 74–108
[2017-04-15 06:12] LABS: HEMATOCRIT 26.9 % (36.0-46.0); HEMOGLOBIN 8.6 G/DL (11.9-15.5); MCH 31.4 PG (29.0-34.0); MCV 98.2 FL (83-99); RBC DIS.WIDTH-CV 15.6 % (11.8-14.6); RBC DIS.WIDTH-SD 55.8 % (39-53); RED BLOOD COUNT 2.74 M/uL (3.80-5.20); WHITE BLOOD COUNT 5.8 K/uL (4.1-10.2)
[2017-04-15 06:13] LABS: PLATELET COUNT 72 K/uL (156-360)
[2017-04-15 06:20] LABS: ALBUMIN 3.3 g/dL (3.2-4.8); CHLORIDE 107 mEq/L (99-109); POTASSIUM 3.9 mEq/L (3.7-5.4); SODIUM 143 mEq/L (136-147)
[2017-04-15 06:22] LABS: GLUCOSE 134 mg/dL (70-99)
[2017-04-15 06:26] LABS: CREATININE 3.9 mg/dL (0.6-1.3); GFR ESTIMATE (CALCULATED) 12 mL/min/; PHOSPHORUS 4.3 mg/dL (2.5-4.9)
[2017-04-15 06:27] LABS: UREA NITROGEN (BUN) 80 mg/dL (9-23)
[2017-04-15 15:23] LABS: TYPE OF FLUID PLEURAL
[2017-04-15 16:02] LABS: APPEARANCE YELLOW-CLEAR; BODY FLUID EOSINOPHILS 0 % (0-25); BODY FLUID RBC'S < 1000 /MM^3 (0-100); BODY FLUID WBC'S 63 /MM^3 (0-500); MONONUCLEAR WBC'S 92 %; POLYNUCLEAR WBC'S 8 % (0-25)
[2017-04-15 16:03] LABS: BODY FLUID GLUCOSE 157 MG/DL; BODY FLUID LDH 64 IU/L; BODY FLUID PROTEIN < 3.0 G/DL
[2017-04-16 04:15] VITALS: BP 152/88
[2017-04-16 06:21] LABS: ALBUMIN 3.2 G/DL (3.2-4.8); CHLORIDE 106 MEQ/L (99-109); CREATININE 3.8 MG/DL (0.6-1.3); GFR ESTIMATE (CALCULATED) 12 mL/min/; GLUCOSE 113 mg/dL (70-99); PHOSPHORUS 4.3 mg/dL (2.5-4.9); POTASSIUM 3.9 MEQ/L (3.7-5.4); SODIUM 144 MEQ/L (136-147); UREA NITROGEN (BUN) 77 mg/dL (9-23)
[2017-04-16 06:55] VITALS: BP 150/86
[2017-04-16 10:49] LABS: URIC ACID 13.6 mg/dL (3.1-9.2)
[2017-04-16 11:00] VITALS: BP 141/89
[2017-04-16 15:00] VITALS: BP 144/82
[2017-04-16 16:55] LABS: TOTAL PROTEIN 5.9 G/DL (6.4-8.3)
[2017-04-16 23:56] VITALS: BP 152/93
[2017-04-17 07:30] LABS: ALBUMIN 3.2 G/DL (3.2-4.8); CHLORIDE 105 MEQ/L (99-109); CREATININE 3.6 MG/DL (0.6-1.3); GFR ESTIMATE (CALCULATED) 13 mL/min/; GLUCOSE 115 mg/dL (70-99); MAGNESIUM 1.7 mg/dl (1.3-2.7); PHOSPHORUS 4.1 mg/dL (2.5-4.9); POTASSIUM 3.6 MEQ/L (3.7-5.4); SODIUM 146 MEQ/L (136-147); UREA NITROGEN (BUN) 82 mg/dL (9-23)
[2017-04-17 07:44] VITALS: BP 153/84
[2017-04-17 15:16] VITALS: BP 125/72
[2017-04-17 23:36] VITALS: BP 143/84
[2017-04-18 07:00] LABS: CHLORIDE 106 MEQ/L (99-109); CREATININE 3.8 MG/DL (0.6-1.3); GFR ESTIMATE (CALCULATED) 12 mL/min/; GLUCOSE 124 mg/dL (70-99); PHOSPHORUS 3.8 mg/dL (2.5-4.9); POTASSIUM 3.8 MEQ/L (3.7-5.4); SODIUM 143 MEQ/L (136-147); UREA NITROGEN (BUN) 85 mg/dL (9-23)
[2017-04-18 08:27] VITALS: BP 156/96
[2017-04-18 16:16] VITALS: BP 139/87
[2017-04-18 23:36] VITALS: BP 130/68
[2017-04-19 05:56] LABS: HEMOGLOBIN 8.7 G/DL (11.9-15.5); MCH 30.7 PG (29.0-34.0); MCHC 31.1 G/DL (30.0-36.0); MCV 98.9 FL (83-99); PLATELET COUNT 81 K/uL (156-360); RBC DIS.WIDTH-SD 57.2 % (39-53); RED BLOOD COUNT 2.83 M/uL (3.80-5.20); WHITE BLOOD COUNT 6.2 K/uL (4.1-10.2)
[2017-04-19 06:19] LABS: ALBUMIN 2.8 G/DL (3.2-4.8); CREATININE 3.9 MG/DL (0.6-1.3); GFR ESTIMATE (CALCULATED) 12 mL/min/; GLUCOSE 118 mg/dL (70-99); PHOSPHORUS 3.7 mg/dL (2.5-4.9); UREA NITROGEN (BUN) 90 mg/dL (9-23)
[2017-04-19 06:21] LABS: CHLORIDE 109 MEQ/L (99-109); POTASSIUM 4.2 MEQ/L (3.7-5.4); SODIUM 146 MEQ/L (136-147)
[2017-04-19 07:06] VITALS: BP 138/84
[2017-04-19 15:20] VITALS: BP 136/75
[2017-04-19 23:06] VITALS: BP 158/88
[2017-04-20 06:27] LABS: ALBUMIN 2.7 G/DL (3.2-4.8); CHLORIDE 110 MEQ/L (99-109); CREATININE 3.8 MG/DL (0.6-1.3); GFR ESTIMATE (CALCULATED) 12 mL/min/; GLUCOSE 144 mg/dL (70-99); PHOSPHORUS 3.4 mg/dL (2.5-4.9); POTASSIUM 3.9 MEQ/L (3.7-5.4); SODIUM 146 MEQ/L (136-147); UREA NITROGEN (BUN) 92 mg/dL (9-23)
[2017-04-20 08:04] VITALS: BP 151/88
[2017-04-20 16:27] VITALS: BP 145/72
[2017-04-20 23:39] VITALS: BP 149/78
[2017-04-21 06:32] LABS: ALBUMIN 2.6 G/DL (3.2-4.8); CHLORIDE 109 MEQ/L (99-109); CREATININE 3.4 MG/DL (0.6-1.3); GFR ESTIMATE (CALCULATED) 14 mL/min/; GLUCOSE 148 mg/dL (70-99); PHOSPHORUS 3.2 mg/dL (2.5-4.9); POTASSIUM 3.9 MEQ/L (3.7-5.4); SODIUM 145 MEQ/L (136-147); UREA NITROGEN (BUN) 93 mg/dL (9-23)
[2017-04-21 07:40] VITALS: BP 162/89
[2017-04-21 11:45] VITALS: BP 130/76
[2017-04-21 11:50] VITALS: BP 130/76
[2017-04-21 16:52] VITALS: BP 115/61
[2017-04-21 23:46] VITALS: BP 129/69
[2017-04-22 06:15] LABS: HEMATOCRIT 28.8 % (36.0-46.0); MCH 31.3 PG (29.0-34.0); MCHC 31.3 G/DL (30.0-36.0); PLATELET COUNT 104 K/uL (156-360); RBC DIS.WIDTH-CV 15.9 % (11.8-14.6); RBC DIS.WIDTH-SD 58.3 % (39-53); RED BLOOD COUNT 2.88 M/uL (3.80-5.20); WHITE BLOOD COUNT 8.7 K/uL (4.1-10.2)
[2017-04-22] MEDS ORDERED: DUONEB 2.5-0.5 M3 ML PEP (06:29)
[2017-04-22] MEDS ORDERED: RANEXA500 MG PO (06:29)
[2017-04-22] MEDS ORDERED: AMLODIPINE BESY10 MG PO (06:30)
[2017-04-22] MEDS ORDERED: BUPROPION XL150 MG PO (06:30)
[2017-04-22] MEDS ORDERED: CARVEDILOL12.5 MG PO (06:30)
[2017-04-22] MEDS ORDERED: ZOLPIDEM TARTRAT5 MG PO (06:31)
[2017-04-22] MEDS ORDERED: ESCITALOPRAM OX10 MG PO (06:31)
[2017-04-22] MEDS ORDERED: MIRTAZAPINE15 MG PO (06:31)
[2017-04-22] MEDS ORDERED: PREDNISONE20 MG PO (06:32)
[2017-04-22] MEDS ORDERED: PANTOPRAZOLE SO40 MG PO (06:32)
[2017-04-22] MEDS ORDERED: BUMEX0.5 MG PO (06:33)
[2017-04-22 06:48] LABS: CHLORIDE 109 MEQ/L (99-109); CREATININE 3.4 MG/DL (0.6-1.3); GFR ESTIMATE (CALCULATED) 14 mL/min/; GLUCOSE 150 mg/dL (70-99); SODIUM 144 MEQ/L (136-147)
[2017-04-22 06:56] LABS: UREA NITROGEN (BUN) 101 mg/dL (9-23)
[2017-04-22 08:04] VITALS: BP 142/72
[2017-04-22 16:19] VITALS: BP 126/70
[2017-04-22 23:22] VITALS: BP 130/78
[2017-04-23 06:55] VITALS: BP 149/79
[2017-04-23 06:55] LABS: CHLORIDE 108 MEQ/L (99-109); CREATININE 3.3 MG/DL (0.6-1.3); GFR ESTIMATE (CALCULATED) 14 mL/min/; GLUCOSE 179 mg/dL (70-99); POTASSIUM 4.2 MEQ/L (3.7-5.4); SODIUM 144 MEQ/L (136-147); UREA NITROGEN (BUN) 93 mg/dL (9-23)
== END 2017-04-23 17:06 | disposition home or self-care (01) | DRG 813 ==
LOC: EME 11:49 → 5EAST 13:56 → EDOF 13:56 → ENRESERV 13:57 → 5EAST 17:00 → ENRESERV 04-22 14:06 → 5EAST 04-23 17:06
PROVIDERS: Emergency Medicine; Hospitalist; Internal Medicine; Internal Medicine Nephrology; Internal Medicine Pulmonary Disease
PROC: 30233R1 Transfusion of Nonautologous Platelets into Peripheral Vein, Percutaneous Approach (ICD-10-PCS; 2017-04-09)
PROC: 0W9B3ZZ Drainage of Left Pleural Cavity, Percutaneous Approach (ICD-10-PCS; principal; 2017-04-15)
PROC: 0W993ZZ Drainage of Right Pleural Cavity, Percutaneous Approach (ICD-10-PCS; 2017-04-16)
PROC: 0W9B3ZZ Drainage of Left Pleural Cavity, Percutaneous Approach (ICD-10-PCS; 2017-04-19)
DX: D69.6 Thrombocytopenia, unspecified (principal); I13.0 Hypertensive heart and chronic kidney disease with heart failure and stage 1 through stage 4 chronic kidney disease, or unspecified chronic kidney disease; D69.3 Immune thrombocytopenic purpura; J18.9 Pneumonia, unspecified organism; Z66 Do not resuscitate; J98.01 Acute bronchospasm; I50.9 Heart failure, unspecified; E78.5 Hyperlipidemia, unspecified; K21.9 Gastro-esophageal reflux disease without esophagitis; I50.42 Chronic combined systolic (congestive) and diastolic (congestive) heart failure; I25.5 Ischemic cardiomyopathy; E11.22 Type 2 diabetes mellitus with diabetic chronic kidney disease; E11.21 Type 2 diabetes mellitus with diabetic nephropathy; D63.1 Anemia in chronic kidney disease; N17.9 Acute kidney failure, unspecified; I27.20 Pulmonary hypertension, unspecified; I25.10 Atherosclerotic heart disease of native coronary artery without angina pectoris; N18.4 Chronic kidney disease, stage 4 (severe); N39.0 Urinary tract infection, site not specified; I35.0 Nonrheumatic aortic (valve) stenosis; R09.89 Other specified symptoms and signs involving the circulatory and respiratory systems; F03.90 Unspecified dementia, unspecified severity, without behavioral disturbance, psychotic disturbance, mood disturbance, and anxiety; M10.9 Gout, unspecified; R78.89 Finding of other specified substances, not normally found in blood; R09.02 Hypoxemia; E66.9 Obesity, unspecified; E55.9 Vitamin D deficiency, unspecified; F34.1 Dysthymic disorder; J98.11 Atelectasis; Z79.4 Long term (current) use of insulin; E87.6 Hypokalemia; N25.81 Secondary hyperparathyroidism of renal origin; R79.89 Other specified abnormal findings of blood chemistry; D69.59 Other secondary thrombocytopenia; Z51.5 Encounter for palliative care; I42.0 Dilated cardiomyopathy; Z79.899 Other long term (current) drug therapy; Z68.30 Body mass index [BMI] 30.0-30.9, adult; Z82.49 Family history of ischemic heart disease and other diseases of the circulatory system; Z87.01 Personal history of pneumonia (recurrent)
CPT/HCPCS: 71045; 71046; 71250; 76942; 80048; 80053; 80069; 81003; 82945; 82948; 83540; 83615; 83615 91; 83735; 83880; 83970; 84100; 84155; 84157; 84466; 84484; 84550; 85025; 85027; 85049; 85610; 85730; 86850; 86900; 86901; 87070; 87086; 87116; 87205; 87206; 88108; 88305; 89051; 93005; 93970; 94010; 94640; 94640 76; 94667; 94668; 94799; 97530 GO; 97530 GP; 99202; 99281; 99285; A6214; J0696; J1200; J1568; J1940; J2405; J2930; J3475; J7050; J7512; P9035; P9037